=== PATIENT | female | born 1940 | race African-American/Black ===

== ENCOUNTER 2017-02-08 15:35 | Inpatient (IN) | payer OTHER, MEDICARE ==
[2017-02-08] VITALS (7 sets, daily range): BP systolic 123–173; BP diastolic 66–100; PULSE 80–93; RESP 16–18; TEMP 98.4; O2SAT 95–98
[~2017-02-08] VITALS: Ht 177.8 cm; Wt 72.0 kg
[~2017-02-08 15:35] MED LIST: 1-ME1LIQ PO; ASPI81TA82 PO; CLON-352 PO; FURO1TAB93 PO; GLUCTAB PO; KCL10C PO; METO100T PO; NYST100010 TOP; OXYB5TAB PO; SERT-132 PO; TIMO0.5S6 OU
--- NOTE | 2017-02-08 15:50 | PD ---
Physical Exam Time Seen by Provider: 15:48 Narrative 76yo F sent by Dr. Gavin because of repeat CT scan showing enlargement of AAA. Patient seen in triage. VS reviewed. Awaiting bed placement. Data Data Last Documented VS Vital Signs Date Time Temp Pulse Resp B/P Pulse Ox O2 Delivery O2 Flow Rate FiO2 02/08/17 15:36 98.4 93 17 162/82 98 MDM Supervised Visit with SUSAN: Rola Mendoza Feb 08, 2017 15:50
[2017-02-08] MEDS ORDERED: SODIUM CHLORIDE 0.9% FLUSH 10 ML FLUSH IV FLUSH PRN ×2 (17:30→20:00)
--- NOTE | 2017-02-08 17:40 | PD ---
HPI Chief Complaint: Abdominal Pain Time Seen by Provider: 17:38 Travel History International Travel<30 days: No Contact w/Intl Traveler<30days: No Traveled to known affect area: No History of Present Illness HPI 76 year old female presents to the ED via EMS after abnormal CT scan. Patients daughter is at bedside, states that Dr. Ralph Clarke sent her for evaluation of known thoracic aneurysm. On presentation the patient complains of 7 month history of left-sided chest pain. She describes the pain as constant and can identify no alleviating or exacerbating factors. She denies fever, chills, shortness of breath, cough, low appetite, abdominal pain, changes in bowel habits, dysuria, back pain. Patient's daughter states that she was discharged from the hospital ~5 weeks ago. She states that she saw Dr. Stanley at that time. PFSH Past Medical History Cancer: No Cardiovascular Problems: Yes Diabetes: Yes Patient Takes Glucophage: No Diminished Hearing: No Endocrine: Yes Hepatitis: No Hiatal Hernia: No Immune Disorder: No Musculoskeletal: Yes (BACK, ARTHRITIS) Psychiatric: Yes (ANXIETY DEPRESSION) Reproductive: Yes Respiratory: Yes (PULMONARY DISEASE ) Tetanus Vaccination: < 5 Years Influenza Vaccination: Yes Past Surgical History Abdominal Surgery: Yes (APPENDECTOMY ) Genitourinary Surgery: Yes (BLADDER SX URETHROLUSIS 2011, SLING 2010,BLADDER 1975) Gynecologic Surgery: Yes (HYSTERECTOMY) Social History Alcohol Use: No Tobacco Use: No Substance Use: No Allergies-Medications (Allergen,Severity, Reaction): Coded Allergies: Sulfa (Unverified Allergy, Severe, ITCHING, 02/08/17) Reported Meds & Prescriptions Reported Meds & Active Scripts Active Reported Gabapentin 300 Mg Cap 300 Mg PO TID Zoloft (Sertraline HCl) 50 Mg Tab 50 Mg PO DAILY Metoprolol Tartrate 25 Mg Tab 25 Mg PO Q6HR Take with food Omeprazole 20 Mg Tab 20 Mg PO DAILY Lipitor (Atorvastatin Calcium) 20 Mg Tab 20 Mg PO HS Lasix (Furosemide) 20 Mg Tab 20 Mg PO DAILY Clonidine (Clonidine HCl) 0.1 Mg Tab 0.1 Mg PO HS Aleve (Naproxen Sodium) 220 Mg Tab 220-440 Mg PO BID PRN Cozaar (Losartan Potassium) 100 Mg Tab 100 Mg PO DAILY Aspirin Adult Low Strength (Aspirin) 81 Mg Tabdr 81 Mg PO DAILY Review of Systems Except as stated in HPI: all other systems reviewed are Neg Physical Exam Narrative GENERAL: Well-nourished, well-developed thin black female in no acute distress SKIN: Focused skin assessment warm/dry. HEAD: Normocephalic. EYES: No scleral icterus. No injection or drainage. NECK: Supple, trachea midline. No JVD or lymphadenopathy. CARDIOVASCULAR: Regular rate and rhythm without murmurs, gallops, or rubs. Palpable pulses in bilateral extremities. CHEST: Nontender throughout without deformity or crepitus. No retractions or use of accessory muscles. RESPIRATORY: Breath sounds clear and equal bilaterally. No accessory muscle use. GASTROINTESTINAL: Abdomen soft, non-tender, nondistended. Active bowel sounds MUSCULOSKELETAL: No cyanosis, or edema. The patient is ambulatory, moves the extremities spontaneously. BACK: Nontender without obvious deformity. No CVA tenderness. Data Data Last Documented VS Vital Signs Date Time Temp Pulse Resp B/P Pulse Ox O2 Delivery O2 Flow Rate FiO2 02/08/17 18:46 83 16 144/90 96 Room Air 02/08/17 15:36 98.4 Orders Complete Blood Count With Diff (02/08/17 17:28) Comprehensive Metabolic Panel (02/08/17 17:28) Lactic Acid (02/08/17 17:28) Prothrombin Time / Inr (Pt) (02/08/17 17:28) Act Partial Throm Time (Ptt) (02/08/17 17:28) Urinalysis - C+S If Indicated (02/08/17 17:28) Iv Access Insert/Monitor (02/08/17 17:28) Ecg Monitoring (02/08/17 17:28) Oximetry (02/08/17 17:28) NPO (02/08/17 17:28) Sodium Chloride 0.9% Flush (Ns Flush) (02/08/17 17:30) Electrocardiogram (02/08/17 17:28) Nicardipine Inj (Cardene Inj) (02/08/17 18:00) Admit Order (Ed Use Only) (02/08/17 19:42) Labs Laboratory Tests Test 02/08/17 18:10 White Blood Count 9.8 TH/MM3 Red Blood Count 3.80 MIL/MM3 Hemoglobin 10.3 GM/DL Hematocrit 32.9 % Mean Corpuscular Volume 86.5 FL Mean Corpuscular Hemoglobin 27.0 PG Mean Corpuscular Hemoglobin 31.2 % Concent Red Cell Distribution Width 15.4 % Platelet Count 557 TH/MM3 Mean Platelet Volume 7.3 FL Neutrophils (%) (Auto) 64.0 % Lymphocytes (%) (Auto) 17.8 % Monocytes (%) (Auto) 12.7 % Eosinophils (%) (Auto) 4.9 % Basophils (%) (Auto) 0.6 % Neutrophils # (Auto) 6.3 TH/MM3 Lymphocytes # (Auto) 1.8 TH/MM3 Monocytes # (Auto) 1.2 TH/MM3 Eosinophils # (Auto) 0.5 TH/MM3 Basophils # (Auto) 0.1 TH/MM3 CBC Comment DIFF FINAL Differential Comment Prothrombin Time 11.6 SEC Prothromb Time International 1.0 RATIO Ratio Activated Partial 30.3 SEC Thromboplast Time Urine Color LIGHT-YELLOW Urine Turbidity CLEAR Urine pH 6.5 Urine Specific [place] 1.006 Urine Protein NEG mg/dL Urine Glucose (UA) NEG mg/dL Urine Ketones NEG mg/dL Urine Occult Blood NEG Urine Nitrite NEG Urine Bilirubin NEG Urine Urobilinogen LESS THAN 2.0 MG/DL Urine Leukocyte Esterase NEG Urine RBC LESS THAN 1 /hpf Urine WBC LESS THAN 1 /hpf Urine Squamous Epithelial <1 /hpf Cells Urine Bacteria RARE /hpf Urine Mucus FEW /lpf Microscopic Urinalysis Comment CULT NOT INDICATED Sodium Level 137 MEQ/L Potassium Level 3.6 MEQ/L Chloride Level 103 MEQ/L Carbon Dioxide Level 27.4 MEQ/L Anion Gap 7 MEQ/L Blood Urea Nitrogen 8 MG/DL Creatinine 0.71 MG/DL Estimat Glomerular Filtration 97 ML/MIN Rate Random Glucose 76 MG/DL Lactic Acid Level 2.7 mmol/L Calcium Level 9.3 MG/DL Total Bilirubin 0.3 MG/DL Aspartate Amino Transf 18 U/L (AST/SGOT) Alanine Aminotransferase 11 U/L (ALT/SGPT) Alkaline Phosphatase 85 U/L Total Protein 8.8 GM/DL Albumin 2.6 GM/DL [facility] Medical Decision Making Medical Screen Exam Complete: Yes Emergency Medical Condition: Yes Differential Diagnosis aortic aneurysm versus aortic dissection versus HTN versus Narrative Course 76 year old female with PMH of HTN, DM presents to the ED via EMS after abnormal CT scan. Patients daughter is at bedside, states that Dr. Ralph Clarke sent her for evaluation of known thoracic aneurysm, changes on outpatient CTA. On presentation the patient complains of 7 month history of left-sided chest pain. She describes the pain as constant and can identify no alleviating or exacerbating factors. She denies fever, chills, shortness of breath, cough, low appetite, abdominal pain, changes in bowel habits, dysuria, back pain. Patient's daughter states that she was discharged from the hospital ~5 weeks ago. She states that she saw Dr. Stanley at that time, has seen him outpatient as well. Vitals reviewed BP 172/100 on presentation. Physical exam reveals a nontoxic-appearing black female in no acute distress. No palpable M/R/G. Chest is clear to auscultation bilaterally. No TTP of the precordium. There are palpable pulses in the bilateral extremities. IV was established. Patient was placed on continuous monitoring. Cardine drip was initiated. BP 144/90 on last check. CBC: WBC 9.8. Hemoglobin 10.3. CMP: Unremarkable Coags: INR 1.0 Lactic acid: 2.7 UA: No culture indicated EKG rate 82, sinus rhythm. AK interval 141, QRS 102, QTC 406. Normal axis. No ST elevations or depressions. Reviewed by Dr. Paredes. 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 Descending aorta reaches a maximum diameter of 4.5 cm. Ascending aortic aneurysm measuring 4.5 cm in the mid tubular portion. CTA performed at [facility] today reveals: Dissection of the thoracic aorta distal to left subclavian artery with aneurysm dilatation to 5 cm. Pseudoaneurysm noted. Descending thoracic aorta with aneurysmal dilatation to 4.2 cm. Comparing the 2 CTAs reveals that the thoracic aortic aneurysm has increased by 0.5 cm since previous imaging. I spoke with Dr. Saucedo, on-call for Dr. Stanley. He recommends better BP control, will see the patient in the morning. I encountered difficulty accessing the patient's previous admission record. Discharge note from Dr. Garner reveals Hancock type B dissection with moderate left pleural effusion. Patient underwent 2-D echo with EF of 45%, moderate MR. Systolic blood pressure goals <140 at discharge. Patient's daughter states she's been managing her mother's medications at home. She presents an extensive record that reveals only a few episodes of systolic blood pressure >140, has administered hydralazine as instructed. I spoke with Dr. Bravo who agrees to accept the patient to the ICU. Please see medicine and CT surgery notes for disposition. Trina Clifton Feb 08, 2017 17:40
[2017-02-08] MEDS ORDERED: GABA300C5 PO (17:51)
[2017-02-08] MEDS ORDERED: ASPI1TAB91 PO (17:51)
[2017-02-08] MEDS ORDERED: CLON0.1T PO (17:51)
[2017-02-08] MEDS ORDERED: LIPI20TA PO (17:51)
[2017-02-08] MEDS ORDERED: METO25TA3 PO (17:51)
[2017-02-08] MEDS ORDERED: ZOLO50TA PO (17:51)
[2017-02-08] MEDS ORDERED: FURO1TAB62 PO (17:51)
[2017-02-08] MEDS ORDERED: NAPR220T95 PO (17:51)
[2017-02-08] MEDS ORDERED: COZA100T PO (17:51)
[2017-02-08] MEDS ORDERED: OMEP20TA PO (17:51)
[2017-02-08] MEDS ORDERED: niCARdipine INJ 25 MG in SODIUM CHLOR 0.9% 250 ML INJ 250 ML IV ONE (18:00)
[2017-02-08 18:28] LABS: AUTOMATED NEUTROPHIL # 6.3 TH/MM3 (1.8-7.7); BASOPHIL # 0.1 TH/MM3 (0-0.2); BASOPHIL % 0.6 % (0.0-2.0); EOSINOPHIL # 0.5 TH/MM3 (0-0.4); EOSINOPHIL % 4.9 % (0.0-4.0); HEMATOCRIT 32.9 % (35.0-46.0); HEMO FLAGS DIFF FINAL; LYMPH % 17.8 % (9.0-44.0); LYMPHOCYTE # 1.8 TH/MM3 (1.0-4.8); MEAN CELL VOLUME 86.5 FL (80.0-100.0); MEAN CORPUSCULAR HGB CONC 31.2 % (32.0-36.0); MONO % 12.7 % (0.0-8.0); PLATELET COUNT 557 TH/MM3 (150-450); RED CELL DISTRIBUTION WIDTH 15.4 % (11.6-17.2); WHITE BLOOD COUNT 9.8 TH/MM3 (4.0-11.0)
[2017-02-08 18:37] LABS: BACTERIA, URINE RARE /hpf; BLOOD, URINE NEG (NEG); COMMENT (UR) CULT NOT INDICATED; CULTURE IF INDICATED CULT NOT INDICATED; GLUCOSE,URINE NEG (NEG); KETONE, URINE NEG (NEG); MUCUS URINE FEW /lpf (OCC); NITRITE,URINE NEG (NEG); PH, URINE 6.5 (5.0-8.5); SQUAMOUS EPITHELIAL CELL URINE <1 /hpf (0-5); URINE COLOR LIGHT-YELLOW (YELLW/STRAW)
[2017-02-08 18:43] LABS: APTT (PATIENT) 30.3 SEC (24.3-30.1); PROTHROMBIN TIME - PATIENT 11.6 SEC (9.8-11.6)
[2017-02-08 18:58] LABS: ANION GAP 7 MEQ/L (5-15); AST (GOT) 18 U/L (15-37); BICARBONATE 27.4 MEQ/L (21.0-32.0); BLOOD UREA NITROGEN 8 MG/DL (7-18); CHLORIDE 103 MEQ/L (98-107); GLOMERULAR FILTRATION RATE 97 ML/MIN (>89); POTASSIUM 3.6 MEQ/L (3.5-5.1); SODIUM (NA) 137 MEQ/L (136-145)
[2017-02-08 18:59] LABS: ALT (GPT) 11 U/L (10-53)
[2017-02-08 19:01] LABS: ALKALINE PHOSPHATASE 85 U/L (45-117); TOTAL BILIRUBIN ADULT 0.3 MG/DL (0.2-1.0)
[2017-02-08] MEDS ORDERED: RESP: ALBUTEROL 2.5 MG/IPRATROPIUM 0.5 MG NEB (PRN) INH (20:00)
[2017-02-08] MEDS ORDERED: MAGNESIUM HYDROXIDE SUSP 30 ML CUP PO PRN (20:00)
[2017-02-08] MEDS ORDERED: BISACODYL 10 MG SUPP RECTAL PRN (20:00)
[2017-02-08] MEDS ORDERED: ACETAMINOPHEN 325 MG TAB PO PRN (20:00)
[2017-02-08] MEDS ORDERED: TEMAZEPAM 15 MG CAP PO PRN (20:00)
[2017-02-08] MEDS ORDERED: CHLORHEXIDINE GLUCONATE 2 % 1 PACK (2 CLOTHS) TOP PRN (20:00)
[2017-02-08] MEDS ORDERED: MORPHINE SULFATE 4 MG/ML INJ IV PRN (20:00)
[2017-02-08] MEDS ORDERED: SENNOSIDES 8.6 MG TAB PO PRN (20:00)
[2017-02-08] MEDS ORDERED: LACTULOSE SYRUP 20 GM/30 ML CUP PO PRN (20:00)
[2017-02-08] MEDS ORDERED: MISCELLANEOUS NURSING INFORMATION XX SCH (20:00)
--- NOTE | 2017-02-08 20:05 | HHI.HP ---
HPI Service Critical Care Medicine Primary Care Physician Everton Clarke MD Admission Diagnosis aortic dissection, hypertension Diagnosis: Travel History International Travel<30 Days: No Contact w/Intl Traveler <30 Da: No Traveled to Known Affected Are: No History of Present Illness 76 year old female presents via EMS after abnormal CT scan supposedly showing worsening in size thoracic aneurysm. Patient's physician Dr. Ralph Clarke sent her for evaluation of known thoracic aneurysm. On presentation the patient complains of 7 month history of left-sided chest pain. She describes the pain as constant and can identify no alleviating or exacerbating factors. She was discharged from the hospital ~5 weeks ago. She states that she saw Dr. Stanley at that time. Review of Systems Constitutional: DENIES: Diaphoretic episodes, Fatigue, Fever, Weight gain, Weight loss, Chills, Dizziness, Change in appetite, Night Sweats Endocrine: DENIES: Abnorml menstrual pattern, Heat/cold intolerance, Polydipsia , Polyuria, Polyphagia Eyes: DENIES: Blurred vision, Diplopia, Eye inflammation, Eye pain, Vision loss , Photosensitivity, Double Vision Ears, nose, mouth, throat: DENIES: Tinnitus, Hearing loss, Vertigo, Nasal discharge, Oral lesions, Throat pain, Hoarseness, Ear Pain, Running Nose, Epistaxis, Sinus Pain, Toothache, Odynophagia Respiratory: DENIES: Apneas, Cough, Snoring, Wheezing, Hemoptysis, Sputum production, Shortness of breath Cardiovascular: COMPLAINS OF: Chest pain, DENIES: Palpitations, Syncope, Dyspnea on Exertion, PND, Lower Extremity Edema, Orthopnea, Claudication Gastrointestinal: DENIES: Abdominal pain, Black stools, Bloody stools, Constipation, Diarrhea, Nausea, Vomiting, Difficulty Swallowing, Anorexia Musculoskeletal: DENIES: Joint pain, Muscle aches, Stiffness, Joint Swelling, Back pain, Neck pain Past Family Social History Allergies: Coded Allergies: Sulfa (Unverified Allergy, Severe, ITCHING, 02/08/17) Past Medical History Hypertension Diabetes mellitus type 2 Spinal arthritis Anxiety and depression Past Surgical History Appendectomy Bladder sling 2010 Hysterectomy Reported Medications Reported Meds & Active Scripts Active Reported Gabapentin 300 Mg Cap 300 Mg PO TID Zoloft (Sertraline HCl) 50 Mg Tab 50 Mg PO DAILY Metoprolol Tartrate 25 Mg Tab 25 Mg PO Q6HR Take with food Omeprazole 20 Mg Tab 20 Mg PO DAILY Lipitor (Atorvastatin Calcium) 20 Mg Tab 20 Mg PO HS Lasix (Furosemide) 20 Mg Tab 20 Mg PO DAILY Clonidine (Clonidine HCl) 0.1 Mg Tab 0.1 Mg PO HS Aleve (Naproxen Sodium) 220 Mg Tab 220-440 Mg PO BID PRN Cozaar (Losartan Potassium) 100 Mg Tab 100 Mg PO DAILY Aspirin Adult Low Strength (Aspirin) 81 Mg Tabdr 81 Mg PO DAILY Active Ordered Medications Current Medications Medications (Trade) Dose Ordered Sig/Jorge Route PRN Reason Start Time Stop Time Status Last Admin Dose Admin Sodium Chloride (NS Flush) 2 ml UNSCH PRN IV FLUSH FLUSH AFTER USING IV ACCESS 02/08/17 17:30 Atorvastatin Calcium (Lipitor) 20 mg HS PO 02/08/17 21:00 Clonidine (Catapres) 0.1 mg HS PO 02/08/17 21:00 Furosemide (Lasix) 20 mg DAILY PO 02/09/17 09:00 Gabapentin (Neurontin) 300 mg TID PO 02/09/17 09:00 Losartan Potassium (Cozaar) 100 mg DAILY PO 02/09/17 09:00 Metoprolol Tartrate (Lopressor) 25 mg Q6HR PO 02/09/17 00:00 Sertraline HCl (Zoloft) 50 mg DAILY PO 02/09/17 09:00 Pantoprazole Sodium 20 mg 20 mg DAILY PO 02/09/17 09:00 Sodium Chloride (NS 1000 ml Inj) 1,000 ml @ 84 mls/hr [id number] IV 02/08/17 21:00 Sodium Chloride (NS Flush) 2 ml UNSCH PRN IV FLUSH FLUSH AFTER USING IV ACCESS 02/08/17 20:00 Sodium Chloride (NS Flush) 2 ml BID IV FLUSH 02/08/17 21:00 Acetaminophen (Tylenol) 650 mg Q6H PRN PO PAIN 1-10 AND/OR FEVER >101F 02/08/17 20:00 Morphine Sulfate (Morphine Inj) 2 mg Q2H PRN IV PAIN SCALE 6 TO 10 02/08/17 20:00 Temazepam (Restoril) 15 mg HS PRN PO INSOMNIA 02/08/17 20:00 Miscellaneous Information 1 [id number] 02/08/17 20:00 Chlorhexidine Gluconate (Chlorhexidine 2% Cloth) 3 pack Taper DAILY@04 TOP 02/09/17 04:00 02/05/18 03:59 Chlorhexidine Gluconate (Chlorhexidine 2% Cloth) 3 pack UNSCH PRN TOP HYGIENIC CARE 02/08/17 20:00 Senna/Docusate Sodium (Nubia-Colace) 1 tab BID PO 02/08/17 21:00 Magnesium Hydroxide (Milk Of Magncarlos manuel Liq) 30 ml Q12H PRN PO MILD - MODERATE CONSTIPATION 02/08/17 20:00 Sennosides (Senokot) 17.2 mg Q12H PRN PO MODERATE - SEVERE CONSTIPATION 02/08/17 20:00 Bisacodyl (Dulcolax Supp) 10 mg DAILY PRN RECTAL SEVERE CONSITIPATION 02/08/17 20:00 Lactulose 30 ml 30 ml DAILY PRN PO SEVERE CONSITIPATION 02/08/17 20:00 Labetalol HCl/ Sodium Chloride (Trandate Inj/NS Inj) 250 ml @ 0 mls/hr TITRATE IV 02/08/17 21:30 Family History Noncontributory Social History No history of tobacco alcohol or illicit drug abuse Physical Exam Vital Signs Vital Signs Date Time Temp Pulse Resp B/P Pulse Ox O2 Delivery O2 Flow Rate FiO2 02/08/17 19:45 88 16 133/72 95 Room Air 02/08/17 18:46 83 16 144/90 96 Room Air 02/08/17 18:31 80 18 152/82 98 02/08/17 17:45 82 16 173/100 98 Room Air 02/08/17 15:36 98.4 93 17 162/82 98 Physical Exam GENERAL: Well-nourished, well-developed patient. SKIN: Warm and dry. HEAD: Normocephalic. EYES: No scleral icterus. No injection or drainage. NECK: Supple, trachea midline. No JVD or lymphadenopathy. CARDIOVASCULAR: Regular rate and rhythm without murmurs, gallops, or rubs. RESPIRATORY: Breath sounds equal bilaterally. No accessory muscle use. GASTROINTESTINAL: Abdomen soft, non-tender, nondistended. MUSCULOSKELETAL: No cyanosis, or edema. BACK: Nontender without obvious deformity. No CVA tenderness. EXTREMITIES: No clubbing cyanosis or edema Laboratory Laboratory Tests Test 02/08/17 18:10 White Blood Count 9.8 Red Blood Count 3.80 Hemoglobin 10.3 Hematocrit 32.9 Mean Corpuscular Volume 86.5 Mean Corpuscular Hemoglobin 27.0 Mean Corpuscular Hemoglobin 31.2 Concent Red Cell Distribution Width 15.4 Platelet Count 557 Mean Platelet Volume 7.3 Neutrophils (%) (Auto) 64.0 Lymphocytes (%) (Auto) 17.8 Monocytes (%) (Auto) 12.7 Eosinophils (%) (Auto) 4.9 Basophils (%) (Auto) 0.6 Neutrophils # (Auto) 6.3 Lymphocytes # (Auto) 1.8 Monocytes # (Auto) 1.2 Eosinophils # (Auto) 0.5 Basophils # (Auto) 0.1 CBC Comment DIFF FINAL Differential Comment Prothrombin Time 11.6 Prothromb Time International 1.0 Ratio Activated Partial 30.3 Thromboplast Time Urine Color LIGHT-YELLOW Urine Turbidity CLEAR Urine pH 6.5 Urine Specific [place] 1.006 Urine Protein NEG Urine Glucose (UA) NEG Urine Ketones NEG Urine Occult Blood NEG Urine Nitrite NEG Urine Bilirubin NEG Urine Urobilinogen LESS THAN 2.0 Urine Leukocyte Esterase NEG Urine RBC LESS THAN 1 Urine WBC LESS THAN 1 Urine Squamous Epithelial <1 Cells Urine Bacteria RARE Urine Mucus FEW Microscopic Urinalysis Comment CULT NOT INDICATED Sodium Level 137 Potassium Level 3.6 Chloride Level 103 Carbon Dioxide Level 27.4 Anion Gap 7 Blood Urea Nitrogen 8 Creatinine 0.71 Estimat Glomerular Filtration 97 Rate Random Glucose 76 Lactic Acid Level 2.7 Calcium Level 9.3 Total Bilirubin 0.3 Aspartate Amino Transf 18 (AST/SGOT) Alanine Aminotransferase 11 (ALT/SGPT) Alkaline Phosphatase 85 Total Protein 8.8 Albumin 2.6 Result Diagram: 02/08/17180902/08/171809 Assessment and Plan Assessment and Plan Thoracic aneurysm - Blood pressure control - Labetalol drip - SBP goal less than 140 - Evaluation by vascular surgery Hypertension - Resume home medication losartan metoprolol Lasix and clonidine - Continue labetalol drip when necessary to keep SBP less than 140 Diabetes - Insulin sliding scale Dyslipidemia - Atorvastatin Depressions and anxiety - Zoloft DVT GI prophylaxis - Teds SCDs - Omeprazole Critical Care: The total critical care time was 35 minutes. Time to perform other separately billable procedures was not included in the critical care time. Dionisio Bravo MD Feb 08, 2017 20:05
[2017-02-08] MEDS: SODIUM CHLORIDE 0.9% FLUSH 10 ML FLUSH IV FLUSH SCH (21:00)
[2017-02-08] MEDS: SODIUM CHLOR 0.9% 1000 ML INJ 1,000 ML IV SCH (21:35)
[2017-02-08] MEDS: cloNIDine HCL 0.1 MG TAB PO SCH (21:56)
[2017-02-08] MEDS: DOCUSATE SODIUM 50 MG/SENNA 8.6 MG TAB PO SCH (21:56)
[2017-02-08] MEDS: LABETALOL INJ 500 MG in SODIUM CHLORIDE 0.9% INJ 150 ML IV SCH (21:56)
[2017-02-08] MEDS: ATORVASTATIN 20 MG TAB PO SCH (21:57)
[2017-02-08] MEDS: METOPROLOL TARTRATE 25 MG TAB PO SCH (23:42)
[2017-02-09] VITALS (12 sets, daily range): BP systolic 114–145; BP diastolic 61–88; PULSE 76–94; RESP 17–26; TEMP 98.6–99; O2SAT 95–98
[2017-02-09] MEDS: CHLORHEXIDINE GLUCONATE 2 % 1 PACK (2 CLOTHS) TOP SCH (03:30)
[2017-02-09 04:12] LABS: AUTOMATED NEUTROPHIL # 4.3 TH/MM3 (1.8-7.7); BASOPHIL # 0.1 TH/MM3 (0-0.2); BASOPHIL % 0.8 % (0.0-2.0); EOSINOPHIL # 0.4 TH/MM3 (0-0.4); EOSINOPHIL % 4.7 % (0.0-4.0); HEMATOCRIT 30.1 % (35.0-46.0); HEMO FLAGS DIFF FINAL; LYMPH % 23.1 % (9.0-44.0); LYMPHOCYTE # 1.7 TH/MM3 (1.0-4.8); MEAN CELL VOLUME 85.4 FL (80.0-100.0); MEAN CORPUSCULAR HEMOGLOBIN 26.6 PG (27.0-34.0); MEAN CORPUSCULAR HGB CONC 31.2 % (32.0-36.0); MONO % 14.6 % (0.0-8.0); NEUT % 56.8 % (16.0-70.0); PLATELET COUNT 496 TH/MM3 (150-450); RED BLOOD COUNT 3.52 MIL/MM3 (4.00-5.30); RED CELL DISTRIBUTION WIDTH 15.3 % (11.6-17.2); WHITE BLOOD COUNT 7.5 TH/MM3 (4.0-11.0)
[2017-02-09 04:16] LABS: INTERNATIONAL NORMALIZED RATIO 1.1 RATIO; PROTHROMBIN TIME - PATIENT 12.2 SEC (9.8-11.6)
[2017-02-09 04:33] LABS: ANION GAP 8 MEQ/L (5-15); AST (GOT) 16 U/L (15-37); BICARBONATE 29.5 MEQ/L (21.0-32.0); BLOOD UREA NITROGEN 6 MG/DL (7-18); CHLORIDE 108 MEQ/L (98-107); GLOMERULAR FILTRATION RATE 125 ML/MIN (>89); MAGNESIUM 1.9 MG/DL (1.5-2.5); POTASSIUM 3.2 MEQ/L (3.5-5.1); SODIUM (NA) 145 MEQ/L (136-145)
[2017-02-09 04:37] LABS: ALKALINE PHOSPHATASE 69 U/L (45-117); ALT (GPT) 10 U/L (10-53); TOTAL BILIRUBIN ADULT 0.4 MG/DL (0.2-1.0)
[2017-02-09] MEDS: METOPROLOL TARTRATE 25 MG TAB PO SCH ×3 (05:55→17:43)
[2017-02-09] MEDS ORDERED: MAGNESIUM OXIDE 400 MG TAB PO PRN (06:30)
[2017-02-09] MEDS ORDERED: POTASSIUM CHLORIDE 25 MEQ EFFERVESCENT TAB PO PRN (06:30)
[2017-02-09] MEDS ORDERED: SODIUM PHOSPHATE INJ 30 MMOL in SODIUM CHLOR 0.9% 250 ML INJ 240 ML IV PRN (06:30)
[2017-02-09] MEDS ORDERED: MAGNESIUM SULFATE INJ 4 GM in SODIUM CHLORIDE 0.9% INJ 92 ML IV PRN (06:30)
[2017-02-09] MEDS ORDERED: POTASSIUM PHOSPHATE MONOBASIC 500 MG TAB PO/TUBE PRN (06:30)
[2017-02-09] MEDS ORDERED: POTASSIUM PHOSPHATE INJ 30 MMOL in SODIUM CHLOR 0.9% 250 ML INJ 250 ML IV PRN (06:30)
[2017-02-09] MEDS ORDERED: MAGNESIUM SULFATE INJ 2 GM in SODIUM CHLORIDE 0.9% INJ 96 ML IV PRN (06:30)
[2017-02-09] MEDS ORDERED: POTASSIUM PHOSPHATE MONOBASIC 500 MG TAB PO PRN (06:30)
[2017-02-09] MEDS ORDERED: POTASSIUM CHLOR 40 MEQ PREMIX 100 ML IV PRN ×2 (06:30)
[2017-02-09] MEDS ORDERED: POTASSIUM CHLOR 20 MEQ PREMIX 100 ML IV PRN (06:30)
[2017-02-09] MEDS: POTASSIUM CHLOR 20 MEQ PREMIX 100 ML IV PRN ×4 (06:56→16:00)
[2017-02-09] MEDS: SODIUM CHLOR 0.9% 1000 ML INJ 1,000 ML IV SCH ×2 (08:55→21:08)
[2017-02-09] MEDS: SERTRALINE HCL 50 MG TAB PO SCH (09:00)
[2017-02-09] MEDS: PANTOPRAZOLE SOD 20 MG DELAYED RELEASE TAB PO SCH (09:00)
[2017-02-09] MEDS: FUROSEMIDE 20 MG TAB PO SCH (09:00)
[2017-02-09] MEDS: DOCUSATE SODIUM 50 MG/SENNA 8.6 MG TAB PO SCH ×2 (09:00→21:00)
[2017-02-09] MEDS: GABAPENTIN 300 MG CAP PO SCH ×3 (09:00→17:43)
[2017-02-09] MEDS: SODIUM CHLORIDE 0.9% FLUSH 10 ML FLUSH IV FLUSH SCH ×2 (09:00→21:08)
[2017-02-09] MEDS: LOSARTAN 50 MG TAB PO SCH (09:00)
--- NOTE | 2017-02-09 11:59 | PD.VS.CON ---
History of Present Illness Chief Complaint: Sent by PCP to ER for DTA. Consult Requested by: History of Present Illness 76 year old female with hx of Bison B DTA that is being followed by Dr. Stanley with medical management with control of BP and surveillance. Went for outpatient CTA and was found to have above with left sided pleural effusion. Compliant at home with BP regimen and no new back or chest pain.. Past/Family/Social History Past Medical History Coded Allergies: Sulfa (Unverified Allergy, Severe, ITCHING, 02/08/17) Past Medical History Hypertension Diabetes mellitus type 2 Spinal arthritis Anxiety and depression Past Surgical History Appendectomy Bladder sling 2010 Hysterectomy Reported Medications Reported Meds & Active Scripts Active Reported Gabapentin 300 Mg Cap 300 Mg PO TID Zoloft (Sertraline HCl) 50 Mg Tab 50 Mg PO DAILY Metoprolol Tartrate 25 Mg Tab 25 Mg PO Q6HR Take with food Omeprazole 20 Mg Tab 20 Mg PO DAILY Lipitor (Atorvastatin Calcium) 20 Mg Tab 20 Mg PO HS Lasix (Furosemide) 20 Mg Tab 20 Mg PO DAILY Clonidine (Clonidine HCl) 0.1 Mg Tab 0.1 Mg PO HS Aleve (Naproxen Sodium) 220 Mg Tab 220-440 Mg PO BID PRN Cozaar (Losartan Potassium) 100 Mg Tab 100 Mg PO DAILY Aspirin Adult Low Strength (Aspirin) 81 Mg Tabdr 81 Mg PO DAILY Home Medications Reported Medications Gabapentin 300 Mg [id number] Mg PO TID #90 CAP Ref 0 02/08/17 Sertraline (Zoloft)50 Mg Tab50 Mg PO DAILY #30 TAB Ref 0 02/08/17 Metoprolol Tartrate 25 Mg Tab25 Mg PO Q6HR #60 TAB Ref 0 Take with food 02/08/17 Omeprazole 20 Mg Tab20 Mg PO DAILY #30 TAB Ref 0 02/08/17 Atorvastatin (Lipitor)20 Mg Tab20 Mg PO HS #30 TAB Ref 0 02/08/17 Furosemide (Lasix)20 Mg Tab20 Mg PO DAILY #30 TAB Ref 0 02/08/17 Clonidine 0.1 Mg Tab0.1 Mg PO HS #60 TAB Ref 0 02/08/17 Naproxen Sodium (Aleve)220 Mg [id number] Mg PO BID PRN (Pain Management) Ref 0 02/08/17 Losartan (Cozaar)100 Mg Ypi344 Mg PO DAILY #30 TAB Ref 0 02/08/[address] (Aspirin Adult Low Strength)81 Mg Tabdr81 Mg PO DAILY 02/08/17 Coded Allergies: Sulfa (Unverified Allergy, Severe, ITCHING, 02/08/17) Physical Exam Vitals/I&O Date Time Temp Pulse Resp B/P Pulse Ox O2 Delivery O2 Flow Rate FiO2 02/09/17 06:00 94 02/09/17 04:00 92 02/09/17 04:00 98.9 92 17 116/63 95 02/09/17 02:00 80 02/09/17 00:00 98.6 84 20 114/61 96 02/09/17 00:00 84 02/08/17 20:48 85 16 124/66 100 02/08/17 20:00 86 16 123/67 95 Room Air 02/08/17 19:45 88 16 133/72 95 Room Air 02/08/17 18:46 83 16 144/90 96 Room Air 02/08/17 18:31 80 18 152/82 98 02/08/17 17:45 82 16 173/100 98 Room Air 02/08/17 15:36 98.4 93 17 162/82 98 Neuro: A&Ox3 Cranial nerves intact. Neck: supple, no carotid bruits. Heart: no murmurs Lungs: decreased at base. Abdomen: soft and nondistended. Vascular: palpable distal pulses. Extremities: warm Laboratory Tests Test 02/08/17 02/08/17 02/09/17 18:10 21:20 03:14 White Blood Count 9.8 7.5 Red Blood Count 3.80 3.52 Hemoglobin 10.3 9.4 Hematocrit 32.9 30.1 Mean Corpuscular Volume 86.5 85.4 Mean Corpuscular Hemoglobin 27.0 26.6 Mean Corpuscular Hemoglobin 31.2 31.2 Concent Red Cell Distribution Width 15.4 15.3 Platelet Count 557 496 Mean Platelet Volume 7.3 7.4 Neutrophils (%) (Auto) 64.0 56.8 Lymphocytes (%) (Auto) 17.8 23.1 Monocytes (%) (Auto) 12.7 14.6 Eosinophils (%) (Auto) 4.9 4.7 Basophils (%) (Auto) 0.6 0.8 Neutrophils # (Auto) 6.3 4.3 Lymphocytes # (Auto) 1.8 1.7 Monocytes # (Auto) 1.2 1.1 Eosinophils # (Auto) 0.5 0.4 Basophils # (Auto) 0.1 0.1 CBC Comment DIFF FINAL DIFF FINAL Differential Comment Prothrombin Time 11.6 12.2 Prothromb Time International 1.0 1.1 Ratio Activated Partial 30.3 Thromboplast Time Urine Color LIGHT-YELLOW Urine Turbidity CLEAR Urine pH 6.5 Urine Specific [place] 1.006 Urine Protein NEG Urine Glucose (UA) NEG Urine Ketones NEG Urine Occult Blood NEG Urine Nitrite NEG Urine Bilirubin NEG Urine Urobilinogen LESS THAN 2.0 Urine Leukocyte Esterase NEG Urine RBC LESS THAN 1 Urine WBC LESS THAN 1 Urine Squamous Epithelial <1 Cells Urine Bacteria RARE Urine Mucus FEW Microscopic Urinalysis Comment CULT NOT INDICATED Sodium Level 137 145 Potassium Level 3.6 3.2 Chloride Level 103 108 Carbon Dioxide Level 27.4 29.5 Anion Gap 7 8 Blood Urea Nitrogen 8 6 Creatinine 0.71 0.57 Estimat Glomerular Filtration 97 125 Rate Random Glucose 76 91 Lactic Acid Level 2.7 Calcium Level 9.3 9.2 Total Bilirubin 0.3 0.4 Aspartate Amino Transf 18 16 (AST/SGOT) Alanine Aminotransferase 11 10 (ALT/SGPT) Alkaline Phosphatase 85 69 Total Protein 8.8 7.3 Albumin 2.6 2.1 Nasal Screen MRSA (PCR) MRSA NOT DETECTED Phosphorus Level 2.3 Magnesium Level 1.9 Assessment and Plan Assessment: (1) Descending thoracic aortic dissection Status: Acute (2) Descending thoracic aortic aneurysm Status: Acute Plan 76 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 Concurrent left-sided pleural effusion She does not currently have any new symptoms. Would continue BP control keeping systolic BP under 110mmHg. Will continue to follow. Arturo Saucedo DO, FACS Electrical Controls Assembler of Vascular Surgery KESHIA/Arturo Lopez DO Feb 09, 2017 11:59
--- NOTE | 2017-02-09 12:24 | PD.TRANSFR ---
Transfer Summary Admission Date Feb 08, 2017 at 19:46 Transfer Date: Feb 09, 2017 Admitting Diagnosis Type B aortic dissection, hypertension Diagnoses: Significant Findings Chronic thoracic aortic dissection. Reviewed by Vascular Surgery Service. For now will just treat by controlling hypertension. Transfer Summary/Subjective Plan: Maintain SBP < 1300 with oral agents. No plans for repair at this time. Objective Vital Signs Date Time Temp Pulse Resp B/P Pulse Ox O2 Delivery O2 Flow Rate FiO2 02/09/17 06:00 94 02/09/17 04:00 98.9 17 116/63 95 02/08/17 20:00 Room Air Intake and Output 02/08/17 02/08/17 02/09/17 08:00 16:00 00:00 Output Total 400 ml Balance -400 ml Result Diagram: 02/09/174 02/09/17313 Objective Remarks GENERAL: Well-nourished, well-developed patient. SKIN: Warm and dry. HEAD: Normocephalic. EYES: No scleral icterus. No injection or drainage. NECK: Supple, trachea midline. No JVD or lymphadenopathy. CARDIOVASCULAR: Regular rate and rhythm without murmurs, gallops, or rubs. RESPIRATORY: Breath sounds equal bilaterally. No accessory muscle use. GASTROINTESTINAL: Abdomen soft, non-tender, nondistended. MUSCULOSKELETAL: No cyanosis, or edema. BACK: Nontender without obvious deformity. No CVA tenderness. EXTREMITIES: No clubbing cyanosis or edema A/P Assessment and Plan Thoracic aneurysm - Blood pressure control - Labetalol drip - SBP goal less than 140 - Evaluation by vascular surgery Hypertension - Resume home medication losartan metoprolol Lasix and clonidine - Continue labetalol drip when necessary to keep SBP less than 140 Diabetes - Insulin sliding scale Dyslipidemia - Atorvastatin Depressions and anxiety - Zoloft DVT GI prophylaxis - Teds SCDs - Omeprazole Critical Care: The total critical care time was 35 minutes. Time to perform other separately billable procedures was not included in the critical care time. Jairo Villegas MD Feb 09, 2017 12:24
--- NOTE | 2017-02-09 14:35 | EKG ---
Date Performed: 02/08/2017 Time Performed: 17:43:13 PTAGE: 76 years EKG: Sinus rhythm POSSIBLE LEFT ATRIAL ENLARGEMENT BORDERLINE ECG Loss of Q wave in aVL noted previously and improveme nt in R wave progression PREVIOUS TRACING : 12/15/1998 10.08 DOCTOR: Galdino Guerrero Interpretating Date/Time 02/09/2017 14:32:53
[2017-02-09] MEDS: LABETALOL INJ 500 MG in SODIUM CHLORIDE 0.9% INJ 150 ML IV SCH ×2 (15:05→19:42)
[2017-02-09] MEDS: ATORVASTATIN 20 MG TAB PO SCH (21:09)
[2017-02-09] MEDS: cloNIDine HCL 0.1 MG TAB PO SCH (23:08)
[2017-02-10] VITALS (12 sets, daily range): BP systolic 103–132; BP diastolic 56–76; PULSE 67–82; RESP 15–22; TEMP 97.6–98.6; O2SAT 94–96
[2017-02-10] MEDS: METOPROLOL TARTRATE 25 MG TAB PO SCH ×4 (00:43→17:55)
[2017-02-10] MEDS: LABETALOL INJ 500 MG in SODIUM CHLORIDE 0.9% INJ 150 ML IV SCH ×5 (00:44→10:18)
[2017-02-10] MEDS: CHLORHEXIDINE GLUCONATE 2 % 1 PACK (2 CLOTHS) TOP SCH (04:25)
[2017-02-10] MEDS: SERTRALINE HCL 50 MG TAB PO SCH (08:10)
[2017-02-10] MEDS: GABAPENTIN 300 MG CAP PO SCH ×3 (08:10→17:55)
[2017-02-10] MEDS: PANTOPRAZOLE SOD 20 MG DELAYED RELEASE TAB PO SCH (08:10)
[2017-02-10] MEDS: FUROSEMIDE 20 MG TAB PO SCH (08:10)
[2017-02-10] MEDS: DOCUSATE SODIUM 50 MG/SENNA 8.6 MG TAB PO SCH ×2 (08:10→20:27)
[2017-02-10] MEDS: LOSARTAN 50 MG TAB PO SCH (08:10)
[2017-02-10] MEDS: SODIUM CHLORIDE 0.9% FLUSH 10 ML FLUSH IV FLUSH SCH ×2 (08:11→20:27)
[2017-02-10] MEDS: SODIUM CHLOR 0.9% 1000 ML INJ 1,000 ML IV SCH ×2 (08:23→18:30)
--- NOTE | 2017-02-10 11:06 | HHI.CCPN ---
Subjective Remarks/Hospital Course Type B dissection, chronic. Wean off labetalol gtt and use oral meds to keep SBP < 130. Objective Vital Signs Date Time Temp Pulse Resp B/P Pulse Ox O2 Delivery O2 Flow Rate FiO2 02/10/17 10:00 67 02/10/17 08:00 98.0 20 123/68 96 02/09/17 19:00 Room Air Intake and Output 02/09/17 02/09/17 02/10/17 08:00 16:00 00:00 Intake Total 751 ml 1066 ml 1357 ml Output Total 900 ml 650 ml Balance 751 ml 166 ml 707 ml Result Diagram: 02/09/17 0314 02/09/172124 Objective Remarks GENERAL: Well-nourished, well-developed patient. SKIN: Warm and dry. HEAD: Normocephalic. EYES: No scleral icterus. No injection or drainage. NECK: Supple, trachea midline. No JVD or lymphadenopathy. CARDIOVASCULAR: Regular rate and rhythm without murmurs, gallops, or rubs. RESPIRATORY: Breath sounds equal bilaterally. No accessory muscle use. GASTROINTESTINAL: Abdomen soft, non-tender, nondistended. MUSCULOSKELETAL: No cyanosis, or edema. BACK: Nontender without obvious deformity. No CVA tenderness. EXTREMITIES: No clubbing cyanosis or edema NEURO: Confused. Moves 4 limbs spontaneously. A/P Assessment and Plan Thoracic Dissection, Type B - Blood pressure control - Taper Labetalol drip - SBP goal less than 130 - Evaluation by vascular surgery Hypertension - Resume home medication losartan metoprolol Lasix and clonidine, add hydralazine. - Continue labetalol drip when necessary to keep SBP less than 130 Diabetes - Insulin sliding scale prn Dyslipidemia - Atorvastatin Depressions and anxiety - Zoloft DVT GI prophylaxis - Teds SCDs - Omeprazole Oveall impression: Chronic dissection. BP control for management for now. Jairo Villegas MD Feb 10, 2017 11:05
[2017-02-10] MEDS: LABETALOL INJ 1,000 MG in SODIUM CHLORID 0.9% 500 ML INJ 300 ML IV SCH ×2 (11:47→16:50)
--- NOTE | 2017-02-10 13:27 | PD.VS.PN ---
Subjective Subjective/Hospital Course Eating lunch with at the bedside. No new complaints. Objective Vitals/I&O Date Time Temp Pulse Resp B/P Pulse Ox O2 Delivery O2 Flow Rate FiO2 02/10/17 12:00 69 02/10/17 12:00 98.2 69 18 121/76 96 02/10/17 10:00 67 02/10/17 08:00 72 02/10/17 08:00 98.0 72 20 123/68 96 02/10/17 07:00 94 02/10/17 06:00 78 02/10/17 04:00 98.5 75 22 128/68 94 02/10/17 04:00 75 02/10/17 02:00 72 02/10/17 00:00 72 02/10/17 00:00 98.6 72 15 106/56 95 02/09/17 22:00 77 02/09/17 20:00 81 02/09/17 20:00 98.7 81 26 126/65 95 02/09/17 19:00 94 Room Air 02/09/17 18:00 85 02/09/17 16:00 99.0 76 21 129/70 96 02/09/17 16:00 76 02/09/17 14:00 90 02/10/17 02/10/17 02/10/17 06:59 14:59 22:59 Intake Total 1439 ml Output Total 1100 ml Balance 339 ml Laboratory Laboratory Tests Test 02/09/17 02/10/17 21:25 10:30 Potassium Level 4.0 Phosphorus Level 2.9 Assessment and Plan Assessment: (1) Descending thoracic aortic dissection Status: Acute (2) Descending thoracic aortic aneurysm Status: Acute Plan 76 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 Concurrent left-sided pleural effusion. She does not currently have any new symptoms. Would continue BP control keeping systolic BP under 110mmHg. Will continue to follow. Arturo Saucedo DO, FACS [employer]person [employer] KESHIA/Arturo Lopez DO Feb 10, 2017 13:27
[2017-02-10] MEDS: hydrALAZINE HCL 50 MG TAB PO SCH ×2 (14:02→20:27)
[2017-02-10] MEDS ORDERED: ONDANSETRON HCL 4 MG/2 ML VIAL IV PUSH PRN (15:00)
[2017-02-10] MEDS: ATORVASTATIN 20 MG TAB PO SCH (20:27)
[2017-02-10] MEDS: cloNIDine HCL 0.1 MG TAB PO SCH (20:27)
[2017-02-11] VITALS (12 sets, daily range): BP systolic 110–148; BP diastolic 55–73; PULSE 71–86; RESP 17–25; TEMP 98–99.5; O2SAT 94–98
[2017-02-11] MEDS: METOPROLOL TARTRATE 25 MG TAB PO SCH ×4 (00:06→18:02)
[2017-02-11] MEDS: CHLORHEXIDINE GLUCONATE 2 % 1 PACK (2 CLOTHS) TOP SCH (04:59)
[2017-02-11] MEDS: SODIUM CHLOR 0.9% 1000 ML INJ 1,000 ML IV SCH ×2 (06:29→18:06)
[2017-02-11] MEDS: hydrALAZINE HCL 50 MG TAB PO SCH ×3 (06:29→20:26)
[2017-02-11] MEDS: DOCUSATE SODIUM 50 MG/SENNA 8.6 MG TAB PO SCH ×2 (08:15→20:26)
[2017-02-11] MEDS: LOSARTAN 50 MG TAB PO SCH (08:15)
[2017-02-11] MEDS: GABAPENTIN 300 MG CAP PO SCH ×3 (08:16→18:02)
[2017-02-11] MEDS: SERTRALINE HCL 50 MG TAB PO SCH (08:16)
[2017-02-11] MEDS: SODIUM CHLORIDE 0.9% FLUSH 10 ML FLUSH IV FLUSH SCH ×2 (08:16→20:25)
[2017-02-11] MEDS: PANTOPRAZOLE SOD 20 MG DELAYED RELEASE TAB PO SCH (08:16)
[2017-02-11] MEDS: FUROSEMIDE 20 MG TAB PO SCH (08:16)
--- NOTE | 2017-02-11 09:58 | PD.VS.PN ---
Subjective Subjective/Hospital Course Pt adm with chest pain but no pain this morning. Sitting in bed, no distress Looks overall comfortable. Objective Vitals/I&O Date Time Temp Pulse Resp B/P Pulse Ox O2 Delivery O2 Flow Rate FiO2 02/11/17 08:00 73 02/11/17 08:00 98.3 73 17 110/61 97 02/11/17 06:00 73 02/11/17 04:00 99.5 80 24 133/63 94 02/11/17 04:00 80 02/11/17 02:00 84 02/11/17 00:00 86 02/11/17 00:00 99.3 86 21 140/71 94 02/10/17 22:00 82 02/10/17 20:00 77 02/10/17 20:00 98.1 77 19 132/74 95 02/10/17 18:00 74 02/10/17 16:00 97.6 71 17 103/65 94 02/10/17 16:00 71 02/10/17 14:00 70 02/10/17 12:00 69 02/10/17 12:00 98.2 69 18 121/76 96 02/10/17 10:00 67 02/11/17 02/11/17 02/11/17 07:00 15:00 23:00 Intake Total 1373 ml Output Total 625 ml Balance 748 ml Physical Exam No chest or abdominal pain Laboratory Laboratory Tests Test 02/10/17 10:30 Phosphorus Level 2.9 Imaging CTA from 02/08 reviewed: chronic TBAD with 2 main fenestrations - one distal to L SCA and on immediately at celiac All visceral vessels perfused Maximum diameter 5.4 cm in chest Simple-appearing pleural effusion Assessment and Plan Assessment: (1) Descending thoracic aortic dissection Status: Acute (2) Descending thoracic aortic aneurysm Status: Acute Plan I think the best option for now is medical management with goal BP <130. If she develops recurrent chest pain, worsening pleural effusion then she could have a TEVAR but would likely require stent grafting into celiac artery as well to seal distal fenestration. Roque Stanley MD FACS tag clerk Roque Stanley MD Feb 11, 2017 09:58
--- NOTE | 2017-02-11 13:46 | HHI.PR ---
Subjective Remarks awake and alert, no chest pain or shortness of breath, pleasantly confused- seen with daughter at bedside baseline ambulates with a walker- and needs standby assist almost require toal care good BP readings Objective Vitals Vital Signs Date Time Temp Pulse Resp B/P Pulse Ox O2 Delivery O2 Flow Rate FiO2 02/11/17 12:00 76 02/11/17 12:00 98.0 74 23 112/55 96 02/11/17 10:00 71 02/11/17 08:00 73 02/11/17 08:00 98.3 73 17 110/61 97 02/11/17 06:00 73 02/11/17 04:00 99.5 80 24 133/63 94 02/11/17 04:00 80 02/11/17 02:00 84 02/11/17 00:00 86 02/11/17 00:00 99.3 86 21 140/71 94 02/10/17 22:00 82 02/10/17 20:00 77 02/10/17 20:00 98.1 77 19 132/74 95 02/10/17 18:00 74 02/10/17 16:00 97.6 71 17 103/65 94 02/10/17 16:00 71 02/10/17 14:00 70 I/O 02/10/17 02/10/17 02/10/17 02/11/17 02/11/17 02/11/17 07:00 15:00 23:00 07:00 15:00 23:00 Intake Total 1439 ml 2094 ml 1185 ml 1373 ml Output Total 1100 ml 50 ml 950 ml 625 ml Balance 339 ml 2044 ml 235 ml 748 ml Intake Oral 240 ml 240 ml 240 ml IV Total 1439 ml 1854 ml 945 ml 1133 ml Output Urine Total 1100 ml 50 ml 950 ml 625 ml # Bowel Movements 0 0 0 0 Result Diagram: 02/09/1731302/09/172124 Objective Remarks awake and alert, NAD anicteric llungs no rales regular rhythm abdomen soft, nontender extremities no edema neuro exam- non focal Urinary Catheter: Yes Assessment to: Continue Jacobs insert reason: Obstruction/Retention Date of Insertion: Feb 10, 2017 A/P Assessment and Plan 76 years old female Thoracic Dissection, Type B - Blood pressure control - Taper Labetalol drip- off drip for last 12 hours - SBP goal less than 130 - Evaluation by vascular surgery- medical management- OP ff up with Dr. Stanley Hypertension - continue losartan 100 mg daily. metoprolol 25 mg po q 6. Lasix 20 mg daily. and hydralazine 50 mg po q8. clonidine 0.1 mg po hs - Clonidine prn with parameter Diabetes Mellitus type 2 - per daughter was on oral hypoglycemics in the past was discontinued- has been diet controlled - Insulin sliding scale prn Dyslipidemia - Atorvastatin Underlying dementia- per daughter almost require total care Depressions and anxiety - Zoloft Acute urinary retention - jacobs reinserted last evening 02/10 - voiding trial when out of bed DVT GI prophylaxis - Teds SCDs - Omeprazole PT consult- with increase activity- out of bed- per family ambulates with a walker with SBA DC planning- CM consult Lionel Garner MD Feb 11, 2017 13:46
[2017-02-11] MEDS: cloNIDine HCL 0.1 MG TAB PO PRN (15:00)
[2017-02-11] MEDS: LABETALOL INJ 1,000 MG in SODIUM CHLORID 0.9% 500 ML INJ 300 ML IV SCH (16:59)
[2017-02-11] MEDS: ATORVASTATIN 20 MG TAB PO SCH (20:26)
[2017-02-11] MEDS: cloNIDine HCL 0.1 MG TAB PO SCH (20:26)
[2017-02-12] VITALS (12 sets, daily range): BP systolic 113–148; BP diastolic 58–76; PULSE 80–90; RESP 20–22; TEMP 98.4–99.3; O2SAT 94–97
[2017-02-12] MEDS: METOPROLOL TARTRATE 25 MG TAB PO SCH ×4 (00:03→18:15)
[2017-02-12] MEDS: cloNIDine HCL 0.1 MG TAB PO PRN (03:07)
[2017-02-12] MEDS: CHLORHEXIDINE GLUCONATE 2 % 1 PACK (2 CLOTHS) TOP SCH (03:08)
[2017-02-12] MEDS: hydrALAZINE HCL 50 MG TAB PO SCH ×3 (05:32→20:27)
[2017-02-12] MEDS: PANTOPRAZOLE SOD 20 MG DELAYED RELEASE TAB PO SCH (08:19)
[2017-02-12] MEDS: SERTRALINE HCL 50 MG TAB PO SCH (08:19)
[2017-02-12] MEDS: GABAPENTIN 300 MG CAP PO SCH ×3 (08:19→18:15)
[2017-02-12] MEDS: SODIUM CHLOR 0.9% 1000 ML INJ 1,000 ML IV SCH ×2 (08:19→18:15)
[2017-02-12] MEDS: LOSARTAN 50 MG TAB PO SCH (08:19)
[2017-02-12] MEDS: SODIUM CHLORIDE 0.9% FLUSH 10 ML FLUSH IV FLUSH SCH ×2 (08:19→20:26)
[2017-02-12] MEDS: DOCUSATE SODIUM 50 MG/SENNA 8.6 MG TAB PO SCH ×2 (08:19→20:25)
[2017-02-12] MEDS: FUROSEMIDE 20 MG TAB PO SCH (08:21)
--- NOTE | 2017-02-12 09:49 | PD.VS.PN ---
Subjective Subjective/Hospital Course Pt in bed resting comfortably upon assessment this am Pt is w/o complaints of chest/back/abdominal Pain Pt reported she has rested well last night and feels great overall Pt is w/o complaints Objective Vitals/I&O Date Time Temp Pulse Resp B/P Pulse Ox O2 Delivery O2 Flow Rate FiO2 02/12/17 08:00 80 02/12/17 08:00 98.9 80 22 144/67 97 02/12/17 06:00 81 02/12/17 04:00 80 02/12/17 04:00 99.3 80 20 122/58 95 02/12/17 02:00 80 02/12/17 00:00 90 02/12/17 00:00 98.9 90 22 130/62 96 02/11/17 22:00 86 02/11/17 20:00 81 02/11/17 20:00 98.6 81 23 122/59 95 02/11/17 18:00 80 02/11/17 16:00 98.4 82 25 148/73 98 02/11/17 16:00 82 02/11/17 14:00 78 02/11/17 12:00 76 02/11/17 12:00 98.0 74 23 112/55 96 02/11/17 10:00 71 02/12/17 02/12/17 02/12/17 07:00 15:00 23:00 Intake Total 978 ml Output Total 950 ml Balance 28 ml Physical Exam GENERAL: Alert pleasant AA/F without complaints SKIN: Warm and dry. NECK: Supple,No JVD CARDIOVASCULAR: RRR, +S1,S2 RESPIRATORY: BS CTA No accessory muscle use GASTROINTESTINAL: Abdomen soft, non-tender, nondistended. MUSCULOSKELETAL: No cyanosis, or edema. Assessment and Plan Assessment: (1) Descending thoracic aortic dissection Status: Acute (2) Descending thoracic aortic aneurysm Status: Acute Plan Plan Continue medical management with a goal BP <130. Pt appears to be doing well this am, unlikely in need of surgical intervention as of now If she develops recurrent chest pain, worsening pleural effusion then she could have a TEVAR Callie WHIPPLE [facility] [phone] Callie Frazier Feb 12, 2017 09:49
--- NOTE | 2017-02-12 13:16 | HHI.PR ---
Subjective Remarks seen with family at bedside patient with no complains of chest pains or shortness of breath at rest Objective Vitals Vital Signs Date Time Temp Pulse Resp B/P Pulse Ox O2 Delivery O2 Flow Rate FiO2 02/12/17 12:00 98.7 81 20 122/68 96 02/12/17 12:00 81 02/12/17 10:00 81 02/12/17 08:00 80 02/12/17 08:00 98.9 80 22 144/67 97 02/12/17 06:00 81 02/12/17 04:00 80 02/12/17 04:00 99.3 80 20 122/58 95 02/12/17 02:00 80 02/12/17 00:00 90 02/12/17 00:00 98.9 90 22 130/62 96 02/11/17 22:00 86 02/11/17 20:00 81 02/11/17 20:00 98.6 81 23 122/59 95 02/11/17 18:00 80 02/11/17 16:00 98.4 82 25 148/73 98 02/11/17 16:00 82 02/11/17 14:00 78 I/O 02/11/17 02/11/17 02/11/17 02/12/17 02/12/17 02/12/17 07:00 15:00 23:00 07:00 15:00 23:00 Intake Total 1373 ml 1196 ml 1001 ml 978 ml Output Total 625 ml 1100 ml 950 ml 950 ml Balance 748 ml 96 ml 51 ml 28 ml Intake Oral 240 ml 240 ml 240 ml 180 ml IV Total 1133 ml 956 ml 761 ml 798 ml Output Urine Total 625 ml 1100 ml 950 ml 950 ml # Bowel Movements 0 0 1 0 Result Diagram: 02/09/174 02/09/172124 Objective Remarks awake and alert, NAD anicteric lungs no rales regular rhythm abdomen soft, nontender extremities no edema neuro exam- non focal Assessment to: Remove Date of Insertion: Feb 10, 2017 Date of Removal: Feb 11, 2017 A/P Assessment and Plan 76 years old female Thoracic Dissection, Type B - Blood pressure control - SBP goal less than 130 - Evaluation by vascular surgery- medical management- OP ff up with Dr. Stanley Hypertension - continue losartan 100 mg daily. metoprolol 25 mg po q 6. Lasix 20 mg daily. and hydralazine 50 mg po q8. clonidine 0.1 mg po hs - Clonidine prn with parameter Diabetes Mellitus type 2 - per daughter was on oral hypoglycemics in the past was discontinued- has been diet controlled - Insulin sliding scale prn Dyslipidemia - Atorvastatin Underlying dementia- per daughter almost require total care Depressions and anxiety - Zoloft Acute urinary retention - jacobs reinserted last evening 02/10- removed 02/11 - voiding trial when out of bed DVT GI prophylaxis - Teds SCDs - Omeprazole PT consult- with increase activity- out of bed- per family ambulates with a walker with SBA DC planning- CM consult- home with home heatlh care nursing Lionel Garner MD Feb 12, 2017 13:16
[2017-02-12] MEDS: cloNIDine HCL 0.1 MG TAB PO SCH (20:25)
[2017-02-12] MEDS: ATORVASTATIN 20 MG TAB PO SCH (20:25)
[2017-02-13] VITALS (22 sets, daily range): BP systolic 119–155; BP diastolic 58–89; PULSE 68–108; RESP 16–22; TEMP 97.4–99.2; O2SAT 94–99
[2017-02-13] MEDS: METOPROLOL TARTRATE 25 MG TAB PO SCH ×5 (00:20→22:17)
[2017-02-13] MEDS: cloNIDine HCL 0.1 MG TAB PO PRN (01:59)
[2017-02-13] MEDS: SODIUM CHLOR 0.9% 1000 ML INJ 1,000 ML IV SCH ×2 (04:43→23:38)
[2017-02-13] MEDS: CHLORHEXIDINE GLUCONATE 2 % 1 PACK (2 CLOTHS) TOP SCH (04:43)
[2017-02-13] MEDS: hydrALAZINE HCL 50 MG TAB PO SCH ×2 (04:43→15:03)
[2017-02-13] MEDS: DOCUSATE SODIUM 50 MG/SENNA 8.6 MG TAB PO SCH ×2 (09:00→20:39)
[2017-02-13] MEDS: SERTRALINE HCL 50 MG TAB PO SCH (09:03)
[2017-02-13] MEDS: SODIUM CHLORIDE 0.9% FLUSH 10 ML FLUSH IV FLUSH SCH ×2 (09:03→20:40)
[2017-02-13] MEDS: PANTOPRAZOLE SOD 20 MG DELAYED RELEASE TAB PO SCH (09:03)
[2017-02-13] MEDS: FUROSEMIDE 20 MG TAB PO SCH (09:03)
[2017-02-13] MEDS: LOSARTAN 50 MG TAB PO SCH (09:03)
[2017-02-13] MEDS: GABAPENTIN 300 MG CAP PO SCH ×3 (09:03→18:02)
--- NOTE | 2017-02-13 16:25 | PD.VS.PN ---
Subjective Subjective/Hospital Course Resting in bed, no chest pain or back pain Otherwise feels well. Looks great Objective Vitals/I&O Date Time Temp Pulse Resp B/P Pulse Ox O2 Delivery O2 Flow Rate FiO2 02/13/17 15:08 83 02/13/17 15:08 97.4 83 20 119/71 95 02/13/17 14:25 83 02/13/17 13:08 78 02/13/17 12:11 80 02/13/17 11:50 97 21 02/13/17 11:33 97.4 82 20 132/75 99 02/13/17 11:33 79 02/13/17 10:14 84 02/13/17 09:20 85 02/13/17 08:05 87 02/13/17 07:55 98.0 90 20 154/89 96 02/13/17 07:55 90 02/13/17 06:00 85 02/13/17 04:00 99.0 90 22 141/69 96 02/13/17 04:00 90 02/13/17 02:00 85 02/13/17 00:00 99.2 85 22 124/58 94 02/13/17 00:00 85 02/12/17 22:00 82 02/12/17 20:00 85 02/12/17 20:00 98.6 85 21 113/63 94 02/12/17 18:00 83 02/13/17 02/13/17 02/13/17 06:59 14:59 22:59 Intake Total 878 ml Output Total 1350 ml Balance -472 ml Physical Exam no chest pain or abdominal pain Assessment and Plan Assessment: (1) Descending thoracic aortic dissection Status: Acute (2) Descending thoracic aortic aneurysm Status: Acute Plan Continue medical management for goal SBP about 130 Ok to f/u in my clinic in about a month - I will schedule Roque Stanley MD Feb 13, 2017 16:25
[2017-02-13] MEDS ORDERED: NIFEdipine 30 MG SUSTAINED RELEASE TAB PO SCH (18:15)
--- NOTE | 2017-02-13 18:17 | HHI.PR ---
Subjective Remarks Labetalol drip DC BP around 140-150 HR sinus no pain complains Objective Vitals Vital Signs Date Time Temp Pulse Resp B/P Pulse Ox O2 Delivery O2 Flow Rate FiO2 02/13/17 17:11 82 02/13/17 16:37 78 02/13/17 15:08 83 02/13/17 15:08 97.4 83 20 119/71 95 02/13/17 14:25 83 02/13/17 13:08 78 02/13/17 12:11 80 02/13/17 11:50 97 21 02/13/17 11:33 97.4 82 20 132/75 99 02/13/17 11:33 79 02/13/17 10:14 84 02/13/17 09:20 85 02/13/17 08:05 87 02/13/17 07:55 98.0 90 20 154/89 96 02/13/17 07:55 90 02/13/17 06:00 85 02/13/17 04:00 99.0 90 22 141/69 96 02/13/17 04:00 90 02/13/17 02:00 85 02/13/17 00:00 99.2 85 22 124/58 94 02/13/17 00:00 85 02/12/17 22:00 82 02/12/17 20:00 85 02/12/17 20:00 98.6 85 21 113/63 94 I/O 02/12/17 02/12/17 02/12/17 02/13/17 02/13/17 02/13/17 07:00 15:00 23:00 07:00 15:00 23:00 Intake Total 978 ml 1348 ml 1914 ml 878 ml 640 ml Output Total 950 ml 1350 ml Balance 28 ml 1348 ml 1914 ml -472 ml 640 ml Intake Oral 180 ml 680 ml 180 ml 240 ml 640 ml IV Total 798 ml 668 ml 1734 ml 638 ml Output Urine Total 950 ml 1350 ml # Voids 6 2 2 3 # Bowel Movements 0 1 1 1 Result Diagram: 02/09/1731302/09/172124 Objective Remarks awake and alert, NAD, oriented x 3 anicteric lungs no rales regular rhythm abdomen soft, nontender extremities no edema neuro exam- non focal Date of Insertion: Feb 10, 2017 Date of Removal: Feb 11, 2017 A/P Assessment and Plan 76 years old female Thoracic Dissection, Type B - Blood pressure control - SBP goal less than 130 - Evaluation by vascular surgery- medical management- OP ff up with Dr. Stanley Hypertension- some SBPs in the 140-150s off Labetalol drip - continue losartan 100 mg daily. - metoprolol 25 mg po q 6.- change to to 50 mg po q8 - Lasix 20 mg daily. and hydralazine 50 mg po q8- increase to 75 mg po q8. clonidine 0.1 mg po hs - - Clonidine prn with parameter Diabetes Mellitus type 2 - per daughter was on oral hypoglycemics in the past was discontinued- has been diet controlled - Insulin sliding scale prn Dyslipidemia - Atorvastatin Underlying dementia- per daughter almost require total care Depressions and anxiety - Zoloft Acute urinary retention- resolved - jacobs reinserted 02/10- removed 02/11 - voiding well DVT GI prophylaxis - Teds SCDs - Omeprazole PT consult- with increase activity- out of bed- per family ambulates with a walker with SBA DC planning- CM consult- home with home heatlh care nursing Lionel Garner MD Feb 13, 2017 18:17
[2017-02-13] MEDS: ATORVASTATIN 20 MG TAB PO SCH (20:40)
[2017-02-13] MEDS: cloNIDine HCL 0.1 MG TAB PO SCH (20:40)
[2017-02-13] MEDS: hydrALAZINE HCL 25 MG TAB PO SCH (22:18)
[2017-02-14] VITALS (27 sets, daily range): BP systolic 122–164; BP diastolic 69–99; PULSE 54–100; RESP 14–20; TEMP 98–98.7; O2SAT 95–100
[2017-02-14] MEDS: CHLORHEXIDINE GLUCONATE 2 % 1 PACK (2 CLOTHS) TOP SCH (04:00)
[2017-02-14] MEDS: hydrALAZINE HCL 25 MG TAB PO SCH ×3 (05:49→23:12)
[2017-02-14] MEDS: METOPROLOL TARTRATE 25 MG TAB PO SCH ×2 (05:49→15:35)
--- NOTE | 2017-02-14 06:23 | PD.VS.PN ---
Subjective Subjective/Hospital Course Resting in bed, no chest pain or back pain Slept well, aleida po last night Objective Vitals/I&O Date Time Temp Pulse Resp B/P Pulse Ox O2 Delivery O2 Flow Rate FiO2 02/14/17 06:02 98 02/14/17 05:10 96 02/14/17 04:06 100 02/14/17 03:00 98.6 91 14 135/76 95 02/14/17 03:00 91 02/14/17 02:00 91 02/14/17 01:00 97 02/14/17 00:10 95 02/13/17 23:00 98 02/13/17 23:00 98.6 98 16 154/83 94 02/13/17 22:00 108 02/13/17 21:00 98 02/13/17 20:00 96 02/13/17 19:00 98.8 68 16 155/74 97 02/13/17 19:00 68 02/13/17 18:06 87 02/13/17 17:11 82 02/13/17 16:37 78 02/13/17 15:08 83 02/13/17 15:08 97.4 83 20 119/71 95 02/13/17 14:25 83 02/13/17 13:08 78 02/13/17 12:11 80 02/13/17 11:50 97 21 02/13/17 11:33 97.4 82 20 132/75 99 02/13/17 11:33 79 02/13/17 10:14 84 02/13/17 09:20 85 02/13/17 08:05 87 02/13/17 07:55 98.0 90 20 154/89 96 02/13/17 07:55 90 Physical Exam no chest or abdominal tenderness Assessment and Plan Assessment: (1) Descending thoracic aortic dissection Status: Acute (2) Descending thoracic aortic aneurysm Status: Acute Plan Continue medical management for goal SBP about 130 Ok to f/u in my clinic in about a month - I will schedule Roque Stanley MD Feb 14, 2017 06:23
[2017-02-14] MEDS: PANTOPRAZOLE SOD 20 MG DELAYED RELEASE TAB PO SCH (09:28)
[2017-02-14] MEDS: GABAPENTIN 300 MG CAP PO SCH ×3 (09:28→18:17)
[2017-02-14] MEDS: FUROSEMIDE 20 MG TAB PO SCH (09:29)
[2017-02-14] MEDS: LOSARTAN 50 MG TAB PO SCH (09:29)
[2017-02-14] MEDS: SERTRALINE HCL 50 MG TAB PO SCH (09:29)
[2017-02-14] MEDS: DOCUSATE SODIUM 50 MG/SENNA 8.6 MG TAB PO SCH ×2 (09:29→20:39)
[2017-02-14] MEDS: SODIUM CHLORIDE 0.9% FLUSH 10 ML FLUSH IV FLUSH SCH ×2 (09:32→20:39)
[2017-02-14] MEDS: SODIUM CHLOR 0.9% 1000 ML INJ 1,000 ML IV SCH (15:40)
--- NOTE | 2017-02-14 16:43 | HHI.PR ---
Subjective Remarks no chest pains or shortness of breath baseline limited activity Objective Vitals Vital Signs Date Time Temp Pulse Resp B/P Pulse Ox O2 Delivery O2 Flow Rate FiO2 02/14/17 15:40 98.0 94 20 164/99 97 02/14/17 13:00 90 02/14/17 12:24 98.0 93 20 144/74 100 02/14/17 12:00 86 02/14/17 11:00 88 02/14/17 10:00 90 02/14/17 09:00 85 02/14/17 08:00 85 02/14/17 08:00 98.5 92 18 122/69 99 02/14/17 07:45 99 Nasal Cannula 2.00 02/14/17 06:02 98 02/14/17 05:10 96 02/14/17 04:06 100 02/14/17 03:00 98.6 91 14 135/76 95 02/14/17 03:00 91 02/14/17 02:00 91 02/14/17 01:00 97 02/14/17 00:10 95 02/13/17 23:00 98 02/13/17 23:00 98.6 98 16 154/83 94 02/13/17 22:00 108 02/13/17 21:00 98 02/13/17 20:00 96 02/13/17 19:00 98.8 68 16 155/74 97 02/13/17 19:00 68 02/13/17 18:06 87 02/13/17 17:11 82 I/O 02/13/17 02/13/17 02/13/17 02/14/17 02/14/17 02/14/17 07:00 15:00 23:00 07:00 15:00 23:00 Intake Total 878 ml 640 ml 1136 ml Output Total 1350 ml 2400 ml Balance -472 ml 640 ml -1264 ml Intake Oral 240 ml 640 ml 240 ml IV Total 638 ml 896 ml Output Urine Total 1350 ml 2400 ml Stool Total 0 ml # Voids 2 3 # Bowel Movements 1 Objective Remarks awake and alert, NAD, oriented x 3 anicteric lungs no rales regular rhythm abdomen soft, nontender, no bruit extremities no edema neuro exam- non focal Date of Insertion: Feb 10, 2017 Date of Removal: Feb 11, 2017 A/P Assessment and Plan 76 years old female Thoracic Dissection, Type B - Blood pressure control - SBP goal less than 130 - Evaluation by vascular surgery- medical management- OP ff up with Dr. Stanley Hypertension- some SBPs some SBP- 140-150s - continue losartan 100 mg daily. - metoprolol 25 mg po q 6.- change to to 50 mg po q 6 today - Lasix 20 mg daily. - hydralazine 50 mg po q8- increased to 75 mg po q8- 02/13 - clonidine 0.1 mg po hs - - Clonidine prn with parameter Diabetes Mellitus type 2 - per daughter was on oral hypoglycemics in the past was discontinued- has been diet controlled - Insulin sliding scale prn Dyslipidemia - Atorvastatin Underlying dementia- per daughter almost require total care Depressions and anxiety - Zoloft Acute urinary retention- resolved - jacobs reinserted 02/10- removed 02/11 - voiding well DVT GI prophylaxis - Teds SCDs - Omeprazole OUt of bed chair PT consult- with increase activity- out of bed- per family ambulates with a walker with SBA DC planning- CM consult- home with home health care nursing- for VS hopefully tomorrow - BP stabilizes PCP- ff up- Lionel Alvarado MD Feb 14, 2017 16:43
--- NOTE | 2017-02-14 16:46 | HHI.FF ---
Face to Face Verification Diagnosis: (1) Descending thoracic aortic dissection (2) Hypertension Physical Therapy Order: Evaluate and Treat, Improve ambulation Speech Therapy Order: To Improve: Cognitive skills Home Health Nursing Order: Medical education Signs/symptoms of disease process Medication education-adverse effect Nursing assessment with vital signs I have seen patient Li Mccracken on 02/14/17. My clinical findings support the need for the requested home health care services because: Need for psychosocial assistance I certify that my clinical findings support that this patient is homebound because: Need for psychosocial assistance Lionel Garner MD Feb 14, 2017 16:46
[2017-02-14] MEDS: cloNIDine HCL 0.1 MG TAB PO SCH (20:38)
[2017-02-14] MEDS: METOPROLOL TARTRATE 50 MG TAB PO SCH (20:39)
[2017-02-14] MEDS: ATORVASTATIN 20 MG TAB PO SCH (20:39)
[2017-02-15] VITALS (14 sets, daily range): BP systolic 118–132; BP diastolic 71–85; PULSE 51–93; RESP 18; TEMP 98.6–99.1; O2SAT 96–100
[2017-02-15] MEDS: CHLORHEXIDINE GLUCONATE 2 % 1 PACK (2 CLOTHS) TOP SCH (04:00)
[2017-02-15] MEDS: METOPROLOL TARTRATE 50 MG TAB PO SCH ×2 (04:33→09:52)
[2017-02-15] MEDS: hydrALAZINE HCL 25 MG TAB PO SCH (05:48)
[2017-02-15] MEDS: SODIUM CHLORIDE 0.9% FLUSH 10 ML FLUSH IV FLUSH SCH (09:00)
[2017-02-15] MEDS: LOSARTAN 50 MG TAB PO SCH (09:52)
[2017-02-15] MEDS: DOCUSATE SODIUM 50 MG/SENNA 8.6 MG TAB PO SCH (09:52)
[2017-02-15] MEDS: PANTOPRAZOLE SOD 20 MG DELAYED RELEASE TAB PO SCH (09:52)
[2017-02-15] MEDS: FUROSEMIDE 20 MG TAB PO SCH (09:52)
[2017-02-15] MEDS: GABAPENTIN 300 MG CAP PO SCH (09:53)
[2017-02-15] MEDS: SERTRALINE HCL 50 MG TAB PO SCH (09:53)
--- NOTE | 2017-02-15 10:30 | HHI.DS ---
Discharge Summary Admission Date Feb 08, 2017 at 7:46 pm Discharge Date: Feb 15, 2017 Admitting Diagnosis Type B aortic dissection, hypertension (1) Descending thoracic aortic aneurysm ICD Code: I71.2 Diagnosis: Principal (2) hypertension Diagnosis: Principal Procedures None. Brief History - From Admission 76 year old female presents via EMS after abnormal CT scan supposedly showing worsening in size thoracic aneurysm. Patient's physician Dr. Ralph Clarke sent her for evaluation of known thoracic aneurysm. On presentation the patient complains of 7 month history of left-sided chest pain. She describes the pain as constant and can identify no alleviating or exacerbating factors. She was discharged from the hospital ~5 weeks ago. She states that she saw Dr. Stanley at that time. PE at Discharge awake and alert, NAD, oriented x 3 anicteric lungs no rales regular rhythm abdomen soft, nontender, no bruit extremities no edema neuro exam- non focal Transfer Summary Plan: Maintain SBP < 1300 with oral agents. No plans for repair at this time. Pt update on day of discharge Patient is doing well. Discussed with patient's daughter regarding blood pressure medications. Also discussed with vascular surgery DIRECTOR OF TEACHING AND LEARNING. Patient has no acute concerns. No chest pain, SOB, fever, chills. Systolic BP < 130. Hospital Course 76 years old female Thoracic Dissection, Type B - Blood pressure control - SBP goal less than 130 - Evaluation by vascular surgery- medical management- outpatient follow up with Dr. Stanley Hypertension- some SBPs some SBP- 140-150s - continue losartan 100 mg daily. - metoprolol 25 mg po q 6. - Lasix 20 mg daily. - clonidine 0.1 mg po hs Diabetes Mellitus type 2 - per daughter was on oral hypoglycemics in the past was discontinued- has been diet controlled - Insulin sliding scale prn Dyslipidemia - Atorvastatin Underlying dementia- per daughter almost require total care Depressions and anxiety - Zoloft Acute urinary retention- resolved - jacobs reinserted /- removed / - voiding well DVT GI prophylaxis - Teds SCDs - Omeprazole Pt Condition on Discharge: Good Discharge Disposition: Disch w/ Home Health Serv Discharge Time: <= 30 minutes Discharge Instructions DIET: Follow Instructions for: Heart Healthy Diet Activities you can perform: Regular-No Restrictions Follow up Referrals: PCP Follow-up - 1 Week Vascular Surgery - 4 Weeks with Roque Stanley MD Continued Medications: Atorvastatin (Lipitor) 20 Mg Tab 20 MG PO HS Cholesterol Management #30 Ref 0 TAB Clonidine (Clonidine) 0.1 Mg Tab 0.1 MG PO HS Blood Pressure Management #60 Ref 0 TAB Furosemide (Lasix) 20 Mg Tab 20 MG PO DAILY #30 Ref 0 TAB Gabapentin (Gabapentin) 300 Mg Cap 300 MG PO TID #90 Ref 0 CAP Losartan (Cozaar) 100 Mg Tab 100 MG PO DAILY Blood Pressure Management #30 Ref 0 TAB Metoprolol Tartrate (Metoprolol Tartrate) 25 Mg Tab 25 MG PO Q6HR Take with food #60 Ref 0 TAB Omeprazole (Omeprazole) 20 Mg Tab 20 MG PO DAILY #30 Ref 0 TAB Sertraline (Zoloft) 50 Mg Tab 50 MG PO DAILY #30 Ref 0 TAB Discontinued Medications: Aspirin DR (Aspirin Adult Low Strength) 81 Mg Tabdr 81 MG PO DAILY TAB Naproxen Sodium (Aleve) 220 Mg Tab 220-440 MG PO BID PRN Pain Management Ref 0 TAB Carlo Acosta DO Feb 15, 2017 10:30 am
--- NOTE | 2017-02-15 10:53 | PD.VS.PN ---
Subjective Subjective/Hospital Course Pt Resting in bed w/o complaints Pt denies chest pain/back pain Objective Vitals/I&O Date Time Temp Pulse Resp B/P Pulse Ox O2 Delivery O2 Flow Rate FiO2 02/15/17 07:45 99.1 86 18 127/73 100 02/15/17 06:01 81 02/15/17 05:01 86 02/15/17 04:01 83 02/15/17 03:01 98.9 92 18 132/85 100 02/15/17 03:01 86 02/15/17 02:01 82 02/15/17 01:03 51 02/15/17 00:13 89 02/14/17 23:01 93 02/14/17 23:01 98.7 76 18 129/80 100 02/14/17 22:01 95 02/14/17 21:01 93 02/14/17 20:01 92 02/14/17 19:01 98.7 73 18 130/76 100 02/14/17 19:01 82 02/14/17 18:00 90 02/14/17 17:37 97 Nasal Cannula 2.00 02/14/17 17:00 90 02/14/17 16:00 92 02/14/17 15:40 98.0 94 20 164/99 97 02/14/17 15:00 78 02/14/17 14:00 88 02/14/17 13:00 90 02/14/17 12:24 98.0 93 20 144/74 100 02/14/17 12:00 86 02/14/17 11:00 88 02/15/17 02/15/17 02/15/17 07:00 15:00 23:00 Intake Total 480 ml Output Total 500 ml Balance -20 ml Physical Exam GENERAL: Alert in NAD SKIN: Warm and dry. CARDIOVASCULAR: +S1,S2 RESPIRATORY: BS CTA GASTROINTESTINAL: Abdomen s/nt Assessment and Plan Assessment: (1) Descending thoracic aortic dissection Status: Acute (2) Descending thoracic aortic aneurysm Status: Acute Plan Plan Continue medical management for goal SBP about 130 Pt scheduled for out patient f/u Callie WHIPPLE [facility] [phone] Discharge Planning today Callie Frazier Feb 15, 2017 10:53
== END 2017-02-15 12:07 | disposition home health service (06) | DRG 301 ==
LOC: NEPC 15:35 → NEDA 19:46 → N03A 21:10 → HCIS 02-13 07:48
PROVIDERS: ADMIT Hospitalist; ATTEND Hospitalist
PROC: 0T9B70Z Drainage of Bladder with Drainage Device, Via Natural or Artificial Opening (ICD-10-PCS; principal; 2017-02-10)
DX: I71.01 Dissection of thoracic aorta (principal); F03.90 Unspecified dementia, unspecified severity, without behavioral disturbance, psychotic disturbance, mood disturbance, and anxiety; E11.9 Type 2 diabetes mellitus without complications; I34.0 Nonrheumatic mitral (valve) insufficiency; I10 Essential (primary) hypertension; M19.90 Unspecified osteoarthritis, unspecified site; Z88.2 Allergy status to sulfonamides; F41.9 Anxiety disorder, unspecified; F32.9 Major depressive disorder, single episode, unspecified; M46.90 Unspecified inflammatory spondylopathy, site unspecified; E78.5 Hyperlipidemia, unspecified; R33.9 Retention of urine, unspecified
CPT/HCPCS: 80053; 81001; 83605; 83735; 84100; 84132; 85025; 85610; 85730; 87641; 93005; 94664; 96374; J3480; J7030; J7040; J7050